=== PATIENT | male | born 1980 | race Caucasian/White ===

== ENCOUNTER 2018-07-31 21:41 | Emergency (ER) | payer MEDICAID ==
[2018-07-31 22:41] VITALS: BP 125/70
== END 2018-07-31 22:41 | disposition home or self-care (01) ==
LOC: ED 21:41
DX: M79.671 Pain in right foot (principal); E11.9 Type 2 diabetes mellitus without complications
CPT/HCPCS: J1885

== ENCOUNTER 2018-10-27 09:56 | Emergency (ER) | payer MEDICAID ==
[~2018-10-27] VITALS: Ht 167.6 cm; Wt 78.9 kg
[2018-10-27 10:46] VITALS: BP 109/70; Ht 167.6 cm; Wt 78.9 kg
== END 2018-10-27 13:04 | disposition home or self-care (01) ==
LOC: ED 09:56
DX: J06.9 Acute upper respiratory infection, unspecified (principal); E11.9 Type 2 diabetes mellitus without complications
CPT/HCPCS: Q0092

== ENCOUNTER 2019-05-30 15:50 | Emergency (ER) | payer OTHER ==
[~2019-05-30] VITALS: Ht 167.6 cm; Wt 81.2 kg
[2019-05-30 15:57] VITALS: Ht 167.6 cm; Wt 81.2 kg
[2019-05-30 17:57] LABS: BASOPHIL % 0.6 % (0-2); PLATELET COUNT 255 x10^3mcL (130-400); RED CELL DISTRIBUTION WIDTH 13.5 % (11.5-14.5)
[2019-05-30 18:05] LABS: microscopic required? NO
[2019-05-30 18:16] LABS: ALKALINE PHOSPHATASE 60 U/L (46-116); ALT/SGPT 47 U/L (16-63); AST/SGOT 16 U/L (15-37); BILIRUBIN TOTAL 0.4 mg/dL (0.20-1.00); CALCIUM 8.8 mg/dL (8.5-10.1); CARBON DIOXIDE 28.7 mmol/L (21-32); CHOLESTEROL 172 mg/dL (<200); CREATININE SERUM 0.6 mg/dL (0.7-1.3); GFR1 > 60 mL/min; GLUCOSE SERUM 374 mg/dL (74-106); LIPASE 118 IU/L (73-393); TOTAL PROTEIN, SERUM 7.2 g/dL (6.4-8.2)
[2019-05-30 18:19] LABS: urine erythrocyte NEGATIVE (NEGATIVE)
[2019-05-30 18:20] LABS: ALBUMIN 3.3 g/dL (3.4-5.0); CHOLESTEROL/HDL RATIO 6.1; HDL CHOLESTEROL 28 mg/dL (40-60); TRIGLYCERIDES 277 mg/dL (<150)
[2019-05-30 18:22] LABS: CHLORIDE SERUM 102 mmol/L (98-107); POTASSIUM SERUM 4.2 mmol/L (3.5-5.1); SODIUM SERUM 138 mmol/L (136-145)
[2019-05-30 18:28] LABS: T3 TOTAL 1.1 ng/mL
[2019-05-30 18:55] LABS: FREE T4 1.07 ng/dL (0.76-1.46); FREE THYROXINE INDEX 2.5 ug/dL (1.4-4.5); T4(THYROXINE) 7.6 ug/dL (4.7-13.3)
[2019-05-30 19:41] VITALS: BP 120/70
== END 2019-05-30 19:41 | disposition home or self-care (01) ==
LOC: ED 15:50
PROVIDERS: Specialist
DX: E11.65 Type 2 diabetes mellitus with hyperglycemia (principal)
CPT/HCPCS: 82962; 83880; 84439; J1815; J7030; Q0092